=== PATIENT | male | born 1960 | race American Indian/Alaskan Native ===

== ENCOUNTER 2017-08-17 00:52 | Emergency (ER) | payer MEDICAID, OTHER ==
[2017-08-17] MEDS ORDERED: Albuterol-Ipratrop 3 mg / 0.5 (3 ml) UD ONE (00:58)
[2017-08-17] MEDS ORDERED: Nitroglycerin 2% Ointment Foilpak UD TOP ONE (01:02)
[2017-08-17] MEDS ORDERED: Nitroglycerin 50mg in D5W 50 MG/250 ML BOTTLE IV ONE ×2 (01:03→01:04)
[2017-08-17 01:04] VITALS: BMI 40.6
[2017-08-17] MEDS ORDERED: Albuterol 0.083% Inhal Sol (2.5 mg/3 mL) UD INH STA (01:04)
[2017-08-17 01:06] VITALS: TEMP 97.6
[2017-08-17] MEDS ORDERED: Albuterol-Ipratrop 3 mg / 0.5 (3 ml) UD INH STA ×2 (01:06)
[2017-08-17 01:22] LABS: BASO # 0.1 K/uL (0.0-0.2); BASO % 0.9 % (0.0-2.0); EOS # 0.2 K/uL (0.0-0.7); EOS % 1.6 % (0.0-4.0); HEMOGLOBIN 16.1 g/dL (12.0-18.0); LYMPH # 5.5 K/uL (1.0-4.3); MEAN CELL VOLUME 101.8 fl (80.0-94.0); MEAN CORPUSCULAR HEMOGLOBIN 32.5 pg (27.0-31.0); MEAN PLATELET VOLUME 8.1 fl (7.2-11.7); MONO # 0.6 K/uL (0.0-0.8); MONO % 4.8 % (0.0-10.0); NEUT # 6.3 K/uL (1.8-7.0); NEUT % 49.7 % (50.0-75.0); NRBC % 0.1 % (0.0-0.0); RBC 4.96 Mil/uL (4.40-5.90); WHITE BLOOD COUNT 12.7 K/uL (4.8-10.8)
[2017-08-17] MEDS ORDERED: Succinylcholine 200 mg/10 ml Inj IV ONE ×2 (01:32→01:54)
[2017-08-17] MEDS ORDERED: Etomidate 20 mg/10ml Inj IV ONE ×2 (01:32→01:53)
[2017-08-17] MEDS ORDERED: Propofol 10 mg/ml 1,000 MG/100 ML VIAL ONE (01:32)
[2017-08-17 01:49] LABS: INR 0.9 (0.9-1.2); PARTIAL THROMBOPLASTIN TIME 31.7 Seconds (25.6-37.1); PROTHROMBIN TIME 9.9 Seconds (9.8-13.1)
[2017-08-17 01:55] LABS: B-TYPE NATRIURETIC PEPTIDE 3780 pg/ml (0-900)
[2017-08-17 01:58] LABS: ALB/GLOB RATIO 1.2 (1.0-2.1); ALBUMIN 3.6 g/dL (3.5-5.0); AST/SGOT 67 U/L (17-59); BLOOD UREA NITROGEN 15 mg/dl (9-20); CALCIUM 8.7 mg/dL (8.4-10.2); GFR AFRICAN-AMERICAN 58; GFR NON-AFRICAN AMERICAN 48
[2017-08-17 01:59] LABS: ALT/SGPT 77 U/L (21-72)
[2017-08-17] MEDS ORDERED: Propofol 10 mg/ml 1,000 MG/100 ML VIAL IV SCH (02:00)
[2017-08-17] MEDS ORDERED: Acetaminophen 650mg/20.3ml solution UD NG PRN (02:05)
[2017-08-17] MEDS ORDERED: Cisatracurium 2 mg/mL Inj 10ml IV ONE (02:05)
[2017-08-17 02:07] VITALS: O2SAT 73
[2017-08-17] MEDS ORDERED: Dextrose 50% SYRINGE Inj (50 ml) IV PRN (02:08)
[2017-08-17] MEDS ORDERED: Glucagon Recombinant 1 mg Inj IM PRN (02:08)
--- NOTE | 2017-08-17 02:12 | CP.PCM.HP ---
Past Patient History - Past Social History Smoking Status: Never Smoked - CARDIAC Hx Hypercholesterolemia: Yes Hx Hypertension: Yes - PSYCHIATRIC Hx Substance Use: No - ANESTHESIA Hx Anesthesia: No Meds Allergies/Adverse Reactions: Allergies Allergy/AdvReac Type Severity Reaction Status Date / Time No Known Allergies Allergy Verified 08/17/17 01:56 Results - Vital Signs Recent Vital Signs: Last Vital Signs Temp 97.6 F 08/17/17 01:04 Pulse 125 H 08/17/17 02:03 Resp 30 H 08/17/17 02:03 BP 186/126 H 08/17/17 02:03 Pulse Ox 73 L 08/17/17 02:03 - Labs Result Diagrams: 08/17/17 01:16 08/17/17 01:16 Labs: Laboratory Results - last 24 hr 08/17/17 08/17/17 08/17/17 01:07 01:15 01:16 WBC RBC Hgb Hct MCV MCH MCHC RDW Plt Count MPV Neut % (Auto) Lymph % (Auto) [place] % (Auto) Eos % (Auto) Baso % (Auto) Neut # (Auto) Lymph # (Auto) [place] # (Auto) Eos # (Auto) Baso # (Auto) PT 9.9 INR 0.9 APTT 31.7 Sodium 141 Potassium 3.3 L Chloride 102 Carbon Dioxide 11 L* Anion Gap 31 H BUN 15 Creatinine 1.5 Est GFR ( Amer) 58 Est GFR (Non-Af Amer) 48 POC Glucose (mg/dL) 188 H Random Glucose 242 H Lactic Acid Calcium 8.7 Total Bilirubin 0.5 AST 67 H ALT 77 H Alkaline Phosphatase 80 Troponin I 0.1070 NT-Pro-B Natriuret Pep 3780 H Total Protein 6.7 Albumin 3.6 Globulin 3.1 Albumin/Globulin Ratio 1.2 Alcohol, Quantitative < 10 08/17/17 08/17/17 01:16 01:16 WBC 12.7 H RBC 4.96 Hgb 16.1 Hct 50.5 MCV 101.8 H MCH 32.5 H MCHC 32.0 L RDW 16.0 H Plt Count 277 MPV 8.1 Neut % (Auto) 49.7 L Lymph % (Auto) 43.0 H [place] % (Auto) 4.8 Eos % (Auto) 1.6 Baso % (Auto) 0.9 Neut # (Auto) 6.3 Lymph # (Auto) 5.5 H [place] # (Auto) 0.6 Eos # (Auto) 0.2 Baso # (Auto) 0.1 PT INR APTT Sodium Potassium Chloride Carbon Dioxide Anion Gap BUN Creatinine Est GFR ( Amer) Est GFR (Non-Af Amer) POC Glucose (mg/dL) Random Glucose Lactic Acid 13.6 H* Calcium Total Bilirubin AST ALT Alkaline Phosphatase Troponin I NT-Pro-B Natriuret Pep Total Protein Albumin Globulin Albumin/Globulin Ratio Alcohol, Quantitative
[2017-08-17] MEDS ORDERED: Cisatracurium Besylate 200 MG in Sodium Chloride 0.9% 500 ML IV SCH (02:15)
[2017-08-17 02:17] LABS: ABG ALLEN TEST YES; ARTERIAL BLOOD GAS HCO3 7.6 mmol/L (21-28); ARTERIAL BLOOD GAS HEMOGLOBIN 16.3 g/dL (11.7-17.4); ARTERIAL BLOOD GAS O2 CAPACITY 21.7 mL/dL (16-24); ARTERIAL BLOOD GAS O2 CONTENT 13.4 ML/dL (15-23); ARTERIAL BLOOD GAS O2 SAT 61.8 % (95-98); ARTERIAL BLOOD GAS PCO2 83 mm/Hg (35-45); ARTERIAL BLOOD GAS PH 6.86 (7.35-7.45); ARTERIAL BLOOD GAS PO2 44 mm/Hg (80-100); ARTERIAL BLOOD GAS TCO2 17.3 mmol/L (22-28)
--- NOTE | 2017-08-17 02:27 | ED PDOC ---
HPI: SOB/CHF/COPD Time Seen by Provider: 08/17/17 01:03 Chief Complaint (Nursing): Respiratory Distress Chief Complaint (Provider): Respiratory Distress History Per: Patient History/Exam Limitations: clinical condition (Dyspnea) Severity: Severe Additional Complaint(s): 57 years old male with history of asthma and hypertension presents to the ED complaining of acute shortness of breath associated with dyspnea and tachypnea. Due to his clinical condition that is consistent with acute pulmonary edema and CHF. Due to severe dyspnea, patient is unable to provide further history. PMD: non provided Past Medical History Reviewed: Historical Data, Nursing Documentation, Vital Signs Vital Signs: Last Vital Signs Temp 97.6 F 08/17/17 02:15 Pulse 40 L 08/17/17 02:54 Resp 35 H 08/17/17 02:54 BP 96/21 L 08/17/17 02:54 Pulse Ox 73 L 08/17/17 05:32 - Medical History PMH: Asthma, HTN, Hypercholesterolemia - Surgical History Surgical History: No Surg Hx - Family History Family History: States: Unknown Family Hx - Social History Current smoker - smoking cessation education provided: No (Unknown) Alcohol: None (Unknown) Drugs: Denies (Unknown) - Home Medications Home Medications: Ambulatory Orders Medication Instructions Recorded Pill For Blood Pressure, Unk Name 1 tab PO DAILY 12/08/14 - Allergies Allergies/Adverse Reactions: Allergies Allergy/AdvReac Type Severity Reaction Status Date / Time No Known Allergies Allergy Verified 08/17/17 01:56 Review of Systems Review Of Systems: ROS cannot be obtained secondary to pt's inabilty to answer questions. Physical Exam - Reviewed Nursing Documentation Reviewed: Yes Vital Signs Reviewed: Yes - Physical Exam Respiratory: Positive for: Rales (Bilateral diffused), Respiratory Distress ( Severe) Extremity: Positive for: Normal ROM, Other (1+ pulse to lower extremity, 2+ pulse for JVD) - Laboratory Results Result Diagrams: 08/17/17 01:16 08/17/17 01:16 - ECG O2 Sat by Pulse Oximetry: 73 (RA) Pulse Ox Interpretation: Abnormal - Critical Care Total Time (In Min): 120 Medical Decision Making Medical Decision Making: Time: 0104 Initial Impression: 57 years old male with CHF and respiratory failure placed on bipap, nitroglycerin and Duoneb. Initial Plan: --Chest X-Ray --PT --PTT --EKG --Troponin --Lact Acid, Palsma --CMP --BTN --Alcohol Serum --CBC --BMP --TSH --Magnesium --Lipid Panel --Creatine Phosphokinase --CK-MB --ABG --BloodCulture --Calcium, Ionized Q6 --Albuterol 2.5 mg INH --Amidate 20 mg IV --Ativan 2 mg IVP --Buspar 30 mg NG Q8 --Diprivan 1,000 mg in 100 ml IV --Demerol 25 mg IVP -- Dextrose 50% Inj --NaCl 100 ml Insulin Human Regular 100 units, 2 units/hr --Lasix 60 mg IV --Lovenox 40 mg SC Daily --Nimbex 13.3 mg IV --Protonix 40 mg IVP --Quelicin 100 mg IV --SOLU-Medrol 125 mg IVP --Tylenol 325 mg NG Q6 Patient initially showed improvement of symptoms with O2 saturation change from 30 to 80. Patient observed to be more restless and not tolerating bipap, necessitating elective intubation. Time: 013 During intubation patient reported by RN have lost pulse, PEA noted on monitor, ACLS/CPR protocol initiated. Patient successfully rescucitated with 1 mg of epinephrine x3 with subsequent ROSC. Frothy pink fluid suctioned repeatedly per ET tube, NG tube placed also draining bilious fluid. Time: 020 Chest X-Ray demonstrates bilateral pulmonary edema. Hypothermia protocol initiated due to witnessed cardiac arrest. Case referred to Dr. Hicks for admission. Time: 243 RN notified MD that patient in asystole; ACLS protocol initiated 1mg of epinephrine x 6, 2g of magnesium sulfate, 2 amps of Sodium bicarbonate and 0.4 ml of Narcan administered without ROSC. Pt's pupils remained fixed and dilated and no detectable cardiac activity, Time: 258 Patient pronounced by provider. no next of kin is listed for patient, Case referred medical unit secretary; spoke with Naina who advised that certificate may be certified by provider and should ME decide that case will be referred to ME in am she will redact certificate, Dx Cardiopulmonary Arrest, Pulmonary Edema with Hypoxic Respiratory Failure, Hypertensive Urgency Scribe Attestation: Documented by Hilary Nava, acting as a scribe for Kota Eugene MD. Provider Scribe Attestation: All medical record entries made by the Scribe were at my direction and personally dictated by me. I have reviewed the chart and agree that the record accurately reflects my personal performance of the history, physical exam, medical decision making, and the department course for this patient. Disposition - Clinical Impression Clinical Impression: Respiratory failure, Cardiopulmonary arrest, Pulmonary edema cardiac cause, CHF (congestive heart failure) - Disposition Disposition Time: 02:59 Condition: Procedures - Intubation Time of Intubation: 01:39 Intubation Method: orotracheal Tube Size (cm): 7.0 Medications: Succinylcholine Breath Sounds after Intubation: right greater than left Intubation Complications: no complications Post Intubation Xray: Yes
[2017-08-17 03:15] LABS: CK-MB 3.3 ng/mL (0.0-3.38)
[2017-08-17] MEDS ORDERED: Sodium Bicarbonate 7.5% (0.9 MEQ/ML) 50ML INJ IV ONE (03:36)
[2017-08-17] MEDS ORDERED: Magnesium Sulfate 1 gm/2 ml Inj IM ONE (03:36)
[2017-08-17] MEDS ORDERED: Naloxone 0.4 mg/ml Inj (Adult) IVP ONE (03:36)
[2017-08-17 05:44] VITALS: BP 96/21; PULSE 40; RESP 35
--- NOTE | 2017-08-17 08:30 | RAD ---
HISTORY: chest pain COMPARISON: None. FINDINGS: LUNGS: There is moderate pulmonary venous congestion. There is confluent airspace disease in both mid and lower lungs. PLEURA: Suspect bilateral pleural effusions, no pneumothorax apparent. CARDIOVASCULAR: The heart is enlarged with prominent central vasculature. Al. OSSEOUS STRUCTURES: No significant abnormalities. VISUALIZED UPPER ABDOMEN: Normal. OTHER FINDINGS: None. IMPRESSION: Findings may represent pulmonary edema or bilateral mid and lower lobe multifocal pneumonia. Clinical correlation and follow-up is advised.
--- NOTE | 2017-08-17 08:45 | RAD ---
HISTORY: intubation COMPARISON: 08/17/2017 at 1:06 a.m.. FINDINGS: The endotracheal tube terminates 2.8 cm proximal to the christina. The nasogastric tube terminates in the stomach. LUNGS: There is worsening pulmonary edema with confluent airspace disease in both lungs, worse on the right. PLEURA: Suspect pleural effusions, no pneumothorax apparent. CARDIOVASCULAR: The heart remains enlarged. OSSEOUS STRUCTURES: No significant abnormalities. VISUALIZED UPPER ABDOMEN: Normal. OTHER FINDINGS: None. IMPRESSION: Worsening pulmonary edema. Endotracheal tube terminates 2.8 cm proximal to the christina.
[2017-08-17] MEDS ORDERED: Enoxaparin 40 mg Syringe SC SCH (09:00)
[2017-08-17] MEDS ORDERED: Mineral Oil/White Petrolatum Ophth Oint OU SCH (22:00)
--- NOTE | 2017-08-18 08:48 | CARD ---
APPROVED REPORT EKG Measurement Heart [id number] <Conclusion> Sinus tachycardia ST & T wave abnormality, consider lateral ischemia Abnormal ECG motion artefact present-recommend repeat
== END 2017-08-17 05:16 ==
LOC: H.ER 00:52 → UNDOADMIN 01:57 → H.ERHOLD 01:57 → UNDODISIN 02:59
DX: J96.90 Respiratory failure, unspecified, unspecified whether with hypoxia or hypercapnia (principal); I46.9 Cardiac arrest, cause unspecified; J81.1 Chronic pulmonary edema; I50.9 Heart failure, unspecified
CPT/HCPCS: 31500; 36600; 71045; 80053; 80061; 80320; 82550; 82553; 82803; 82948; 83605; 83735; 83880; 84443; 84484; 85025; 85610; 85730; 87040; 87804; 92950; 93005; 94640; 94660; 96372; 96374; 96375; 96376; 99285; J0171; J0330; J1940; J2060; J2310; J2704; J2930; J3475